=== PATIENT | female | born 1995 | race African-American/Black ===

== ENCOUNTER 2016-07-15 16:10 | Emergency (ER) | payer OTHER ==
--- NOTE | 2016-07-15 17:20 | ED Physician Documentation ---
Fall - HISTORIAN Historian: patient - HPI Stated Complaint: Back Pain Chief Complaint: Fall Additional Information: fall on carpet flat on back, no head trauma Onset: just prior to arrival Where: home Context: fell from standing r: moderate Associated Symptoms:: no loss of consciousness Location of Pain/Injury: neck, mid back, lower back Injury to Right Extremity: hand Injury to Left Extremity: none Front/Back of Body, Lg (Glades): 1 - pain/tenderness 2 - pain/tenderness Further Comments: no - ROS CONST: no problems NEURO: denies: dizziness, anxiety, depression MS/SKIN/LYMPH: neck pain, back pain. denies: weakness, numbness EYES/ENT: none CVS/RESP: none GI/: denies: problems urinating, nausea, vomiting - PAST HX Past History: none Immunizations: referred to PCP Allergies/Adverse Reactions: Allergies Allergy/AdvReac Type Severity Reaction Status Date / Time No Known Allergies Allergy Verified 03/07/16 20:13 Home Medications: Ambulatory Orders Medication Instructions Recorded Ranitidine HCl [Zantac] 75 mg PO 07/15/16 - SOCIAL HX Smoking History: cigarettes Alcohol Use: none Drug Use: marijuana - FAMILY HX Family History: no significant history - VITAL SIGNS Vital Signs: Vital Signs Temp Pulse Resp BP Pulse Ox 97.9 F 69 18 136/80 99 07/15/16 16:10 07/15/16 16:10 07/15/16 16:10 07/15/16 16:10 07/15/16 16:10 - REVIEWED ASSESSMENTS Nursing Assessment Reviewed: Yes Vitals Reviewed: Yes Progress - Results/Orders Results/Orders: c-spine, t-spine, l-spine x-rays ordered - Progress Progress: pt. stable entire time in er Critical Care Note - Critical Care Note Total Time (mins): 0 ED Results Lab/Radiology - Lab Results Lab Results: ucg neg - Radiology Radiology Impressions: c-spine, t-spine, l-spine neg - Orders Orders: ED Orders Category Date Time Status C SPINE 2 OR 3 VIEWS [RAD] Stat Exams 07/15/16 Ordered L SPINE 2 OR 3 VIEWS [RAD] Stat Exams 07/15/16 Ordered T SPINE 3 VIEWS [RAD] Stat Exams 07/15/16 Ordered URINE HCG Routine Lab 07/15/16 16:41 Ordered Fall Physical Exam - Physical Exam General Appearance: alert, mild distress Head: non-tender, no swelling, no obvious injury. No: raccoon eyes, Stacy's sign Neck: pain with neck movement (right C3) Eye: MYLENE, EOMI ENT: nml external inspection Resp/CVS: chest non-tender, no ecchymosis, breath sounds nml, no resp. distress , heart sounds nml Abdomen: soft, no organomegaly, normal bowel sounds, no distension, non-tender Neuro: oriented x3, CN's nml as tested, sensation nml, motor nml, branch lending manager nml, reflexes nml, branch lending manager symmetrical Skin: color nml, no rash Back: normal inspection, muscle spasm (right side cervical muscles, lumbar muscles), other (no step offfs c-spine, t-spine, l-spine. Multiple spinous process tendernesses, tenderness L1 right) Extremities: atraumatic, pelvis stable, no pedal edema, nml ROM Joint: joints nml, nml ROM, Nml gait/weight bearing Discharge Clincal Impression: Cervical strain Qualifiers: Encounter type: initial encounter Qualified Code(s): S16.1XXA - Strain of muscle, fascia and tendon at neck level, initial encounter Strain of thoracic spine Qualifiers: Encounter type: initial encounter Qualified Code(s): S29.019A - Strain of muscle and tendon of unspecified wall of thorax, initial encounter Lumbar strain Qualifiers: Encounter type: initial encounter Qualified Code(s): S39.012A - Strain of muscle, fascia and tendon of lower back, initial encounter Home Medications: Ambulatory Orders Ranitidine HCl [Zantac] 75 mg PO 07/15/16 Comments: Discharged in stable condition with scripts for Parafon Forte DSC 500 mg 1 p.o. qid #20 no refill, Meloxicam 7.5 mg #10 no refill Condition: Stable Disposition: 01 HOME, SELF-CARE Decision to Admit: NO Decision Time: 17:30
[2016-07-15 17:45] VITALS: BP 130/68
--- NOTE | 2016-07-16 07:54 | Diagnostic Imaging Report ---
[facility] [address] [facility].[address] [address] Report Submission Date: Jul 15, 2016 5:36:35 PM MAJOR ASSEMBLY LINEMAN Patient Study Name: JAYY ANGEL Date: Jul 15, 2016 4:55:12 PM MAJOR ASSEMBLY LINEMAN Modality Type: CR Gender: F Description: SPINE : 89 Institution: [facility] Physician: LESLI KOO Cervical spine 3 views History: Neck pain after fall Findings: Reversed cervical lordosis is present without fracture, disc space narrowing, subluxation, or prevertebral soft tissue swelling. Electronically signed on Jul 15, 2016 5:36:35 PM MAJOR ASSEMBLY LINEMAN by: Pipe MA
--- NOTE | 2016-07-16 07:55 | Diagnostic Imaging Report ---
[facility] [address] [facility] [address] [address] Report Submission Date: Jul 15, 2016 5:35:51 PM PRESENTATION MANAGER Patient Study Name: JAYY ANGEL Date: Jul 15, 2016 5:02:24 PM PRESENTATION MANAGER Modality Type: CR Gender: F Description: SPINE : 89 Institution: [facility] Physician: LESLI KOO Lumbar spine 3 views History: Low back pain after fall Findings: The lumbar spine is normal without fracture, disc space narrowing, spondylolysis, or spondylolisthesis. Electronically signed on Jul 15, 2016 5:35:51 PM PRESENTATION MANAGER by: Pipe MA
--- NOTE | 2016-07-16 07:56 | Diagnostic Imaging Report ---
[facility] [address] [facility] [address] Report Submission Date: Jul 15, 2016 5:35:14 PM REAL ESTATE SERVICES COORDINATOR Patient Study Name: JAYY ANGEL Date: Jul 15, 2016 5:04:05 PM REAL ESTATE SERVICES COORDINATOR Modality Type: CR Gender: F Description: SPINE : 89 Institution: [facility] Physician: LESLI KOO Thoracic spine 3 views History: Pain after fall Findings: The thoracic spine is unremarkable without fracture, disc space narrowing, focal bone lesion, or paraspinal swelling. Electronically signed on Jul 15, 2016 5:35:14 PM REAL ESTATE SERVICES COORDINATOR by: Pipe MA
== END 2016-07-15 17:44 | disposition home or self-care (01) ==
LOC: ED 16:10
DX: S16.1XXA Strain of muscle, fascia and tendon at neck level, initial encounter (principal); S29.019A Strain of muscle and tendon of unspecified wall of thorax, initial encounter; S39.012A Strain of muscle, fascia and tendon of lower back, initial encounter; X58.XXXA Exposure to other specified factors, initial encounter; Y93.9 Activity, unspecified; Y99.9 Unspecified external cause status
CPT/HCPCS: 72040; 72072; 72100; 81025

== ENCOUNTER 2016-10-03 22:32 | Emergency (ER) | payer OTHER | END 2016-10-03 22:39 | LOC: ED 22:32 | DX: Z32.00 Encounter for pregnancy test, result unknown (principal) | CPT/HCPCS: 99281 ==

== ENCOUNTER 2016-10-05 10:18 | Outpatient (CLI) | payer OTHER | END 2016-10-05 10:20 | LOC: LAB 10:18 | PROVIDERS: ATTEND Family Medicine | DX: Z00.00 Encounter for general adult medical examination without abnormal findings (principal); N94.6 Dysmenorrhea, unspecified; Z11.3 Encounter for screening for infections with a predominantly sexual mode of transmission | CPT/HCPCS: 36415; 84702; 87491; 87591 ==

== ENCOUNTER 2016-11-26 13:02 | Emergency (ER) | payer OTHER ==
[2016-11-26] MEDS ORDERED: ALBUTEROL SULFATE 2.5 MG/3 ML AMPUL.NEB NEB ONE ×3 (13:03→13:35)
[2016-11-26] MEDS ORDERED: SODIUM CHLORIDE 3 ML VIAL.NEB IH ONE (13:03)
[2016-11-26] MEDS ORDERED: LORazepam 1 MG TABLET PO ONE (13:05)
[2016-11-26] MEDS ORDERED: FAMOTIDINE 20 MG TABLET PO ONE (14:45)
--- NOTE | 2016-11-26 14:56 | ED Physician Documentation ---
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 denies: recent illness, weakness EYES/ENT: none GI/: none NEURO/PSYCH: headache MS/SKIN/LYMPH: none - PAST HX Lung Disease: asthma, other (gerd) Cardiac Disease: none PE Risk Factors: none, other Surgeries/Procedures: none Allergies/Adverse Reactions: Allergies Allergy/AdvReac Type Severity Reaction Status Date / Time No Known Allergies Allergy Verified 11/26/16 14:00 - SOCIAL HX Smoking History: less than 1 pack/day Alcohol Use: none Drug Use: none - FAMILY HX Family History: no significant history - VITAL SIGNS Vital Signs: Vital Signs Temp Pulse Resp BP Pulse Ox 130/68 07/15/16 17:44 - REVIEWED ASSESSMENTS Nursing Assessment Reviewed: Yes Vitals Reviewed: Yes ED Results Lab/Radiology - Orders Orders: ED Orders Category Date Time Status Place IV Lock 1T Care 11/26/16 13:05 Active Albuterol Sulfate [Ventolin] Med 11/26/16 13:03 Discontinued 2.5 mg NEB .STK-MED ONE Albuterol Sulfate [Ventolin] Med 11/26/16 13:05 Discontinued 2.5 mg NEB NOW ONE Albuterol Sulfate [Ventolin] Med 11/26/16 13:35 Once 2.5 mg NEB NOW ONE LORazepam [Ativan] Med 11/26/16 13:05 Discontinued 1 mg PO NOW ONE Sodium Chloride For Inhalation [Dey] Med 11/26/16 13:03 Discontinued 3 ml IH .STK-MED ONE Dyspnea Physical Exam - EXAM General Appearance: moderate distress EENT: eye inspection normal Neck: nml inspection Respiratory: prolonged expirations, decreased air movement, wheezes, rales, rhonchi, stridor. No: breath sounds nml CVS: reg. rate & rhythm, tachycardia Abdomen: non-tender, no distention Skin: color nml, no rash. No: cyanosis, diaphoresis, pallor Extremities: non-tender, normal range of motion Neuro/Psych: oriented x3, motor nml, sensation nml, mood/affect nml Discharge Clincal Impression: HYPERVENTILLATION DT ANXIETY, Asthma attack Referrals: Eloisa Patino MD [Primary Care Provider] - 2 Days Condition: Good Disposition: 01 HOME, SELF-CARE Decision to Admit: NO Decision Time: 14:55
[2016-11-26 15:25] VITALS: BP 106/56
== END 2016-11-26 15:21 | disposition home or self-care (01) ==
LOC: ED 13:02
DX: F41.9 Anxiety disorder, unspecified (principal); J45.909 Unspecified asthma, uncomplicated
CPT/HCPCS: 99283; S1016

== ENCOUNTER 2016-12-16 02:46 | Emergency (ER) | payer SELFPAY ==
[2016-12-16] MEDS: ORPHENADRINE CITRATE 60 MG/2ML IM ONE (03:06)
--- NOTE | 2016-12-16 03:21 | ED Physician Documentation ---
Low Back Pain - HISTORIAN Historian: patient - HPI Stated Complaint: Low Back Pain Chief Complaint: Low Back Pain/ Injury Additional Information: slipped on steps yest am worked at [employer] yest here this am for tx./ recurrent low back pain will tx for now see pcp later today. History: history of chronic pain:, back pain Onset: hours (14) Duration: continues in ED, other (toopk ibu helped some) Recent Injury: Yes Where: home Severity: mild, moderate Quality: burning, sharp, dull, similar- prior back pain Associated Symptoms: denies: fever, chills, sweating, problems urinating, difficulty walking Worsened By:: movement to RT flexion, movement to LT flexion, cough, deep breaths - ROS CONST: no problems CVS/RESP: none EYES/ENT: none MS/SKIN/LYMPH: none Neuro/Psych: none GI/: denies: abdominal pain - PAST HX Past History: back injury, back pain, other (asthma panic attacks) Surgeries/Procedures: none Allergies/Adverse Reactions: Allergies Allergy/AdvReac Type Severity Reaction Status Date / Time No Known Allergies Allergy Verified 12/16/16 02:56 Home Medications: Ambulatory Orders Medication Instructions Recorded NK [NK] 12/16/16 - SOCIAL HX Smoking History: less than 1 pack/day Drug Use: marijuana (quit few weeks ago) - FAMILY HX Family History: none - VITAL SIGNS Vital Signs: Vital Signs Temp Pulse Resp BP Pulse Ox 76 16 114/89 98 12/16/16 02:50 12/16/16 02:50 12/16/16 02:50 12/16/16 02:50 - REVIEWED ASSESSMENTS Nursing Assessment Reviewed: Yes Vitals Reviewed: Yes ED Results Lab/Radiology - Orders Orders: ED Orders Category Date Time Status Orphenadrine Citrate [Norflex] Med 12/16/16 03:06 Once 60 mg IM NOW ONE traMADol HCL [Ultram] Med 12/16/16 04:00 Ordered 100 mg PO Q4H Low Back Pain/Injury - Physical Exam General Appearance: mild distress EENT: eye inspection normal Neck: non-tender, painless ROM, trachea midline Resp/CVS: chest non-tender, breath sounds nml, heart sounds nml Abdomen: non-tender Back: CVA tenderness, muscle spasm (b ilateral) Straight Leg Raising: Positive Left, Positive Right (at 25 degrees but able to raise legs to 90 deg sitting posn) Neuro/Psych: oriented x3, motor nml, sensation nml Skin: warm/dry, normal color. No: cyanosis, diaphoresis, jaundice Extremities: non-tender, normal range of motion, no evidence of injury, no edema Discharge Clincal Impression: fall w/exab low back pain, chronic recurrent lo back pain Referrals: Eloisa Patino MD [Primary Care Provider] - 2 Days Home Medications: Ambulatory Orders NK [NK] 12/16/16 Comments: meds for tonite and norflex plus cont ibu 600 tid see pcp for narcotics if needed Condition: Good Disposition: 01 HOME, SELF-CARE Decision to Admit: NO Decision Time: 03:21
[2016-12-16] MEDS: traMADol HCL 50 MG TABLET PO SCH (03:25)
[2016-12-16] MEDS ORDERED: traMADol HCL 50 MG TABLET ONE (03:27)
[2016-12-16 03:35] VITALS: BP 108/68
== END 2016-12-16 03:30 | disposition home or self-care (01) ==
LOC: ED 02:46
DX: M54.5 Low back pain (principal); W19.XXXA Unspecified fall, initial encounter; Y93.9 Activity, unspecified; Y99.9 Unspecified external cause status
CPT/HCPCS: 96372; 99283; J2360

== ENCOUNTER 2017-04-18 13:35 | Emergency (ER) | payer SELFPAY ==
--- NOTE | 2017-04-18 14:07 | ED Physician Documentation ---
Abdominal Pain - HPI Stated Complaint: LLQ ABD pain Chief Complaint: Abdominal Pain Additonal Information: llq abd pain x 2weeks had bm liquid and formed yesterday-only one this month. eats large meals one day then minimal daily for several days-hx dec bms. sexually active but recent ua pg test =neg. nausea no emesis Onset: days ago (2 weeks not uinusual to go one month w/o bm) Duration: waxing, waning Timing: worse Context: denies: out of country travel, bad food, recent trauma Severity: moderate Quality: pain, cramping Associated Symptoms: nausea. denies: vomiting - ROS CONST: no problems GI/: none ( but very scanty urine oiutput), constipation CVS/RESP: none EYES/ENT: none MS/SKIN/LYMPH: none NEURO/PSYCH: none - SOCIAL HX Smoking History: less than 1 pack/day Alcohol Use: none Drug Use: marijuana - FAMILY HX Family History: other (mother recently dx w/ breast cancer) - PAST HX Past History: peptic ulcer, GERD, other (adhd chronic lo back pain) Surgeries/Procedures: other () Home Medications: Ambulatory Orders Medication Instructions Recorded Polyethylene Glycol 3350 [Miralax] 17 gm PO [id number] #1 powd.pack 04/18/17 Allergies/Adverse Reactions: Allergies Allergy/AdvReac Type Severity Reaction Status Date / Time No Known Allergies Allergy Verified 04/18/17 13:49 - VITAL SIGNS Vital Signs: Vital Signs Temp Pulse Resp BP Pulse Ox 97.7 F 66 15 141/89 100 04/18/17 13:50 04/18/17 13:50 04/18/17 13:50 04/18/17 13:50 04/18/17 13:50 - REVIEWED ASSESSMENTS Nursing Assessment Reviewed: Yes Vitals Reviewed: Yes ED Results Lab/Radiology - Lab Results Lab Results: Lab Results 04/18/17 04/18/17 14:15 14:15 WBC 8.80 K/ul K/ul (4.00-12.00) RBC 4.70 M/ul M/ul (3.90-5.20) Hgb 13.4 g/dL g/dL (12.0-16.0) Hct 41.3 % % (34.5-46.5) MCV 87.8 fl fl (80.0-100.0) MCH 28.4 pg pg (28.0-34.0) MCHC 32.4 g/dL g/dL (30.0-36.0) RDW 13.0 % % (11.3-14.3) Plt Count 159 K/mm3 K/mm3 (130-400) Neut % (Auto) 73.9 % % (39.0-79.0) Lymph % (Auto) 19.8 % % (16.0-50.0) [place] % (Auto) 3.5 % % (0.0-11.0) Eos % (Auto) 1.4 % % (0.0-6.8) Baso % (Auto) 0.2 (0.0-1.5) Neut # (Auto) 6.5 # k/uL # k/uL (1.4-7.7) Lymph # (Auto) 1.7 # k/uL # k/uL (0.6-4.0) [place] # (Auto) 0.3 # k/uL # k/uL (0.0-0.9) Eos # (Auto) 0.1 # k/uL # k/uL (0.0-0.6) Baso # (Auto) 0.0 # k/uL # k/uL (0.0-0.5) Reactive Lymphs % 1.2 % % (0.0-5.0) Reactive Lymphs # 0.1 # k/uL # k/uL (0.0-0.8) Sodium 138 mmol/L mmol/L (137-145) Potassium 3.4 mmol/L L mmol/L (3.5-5.1) Chloride 103 mmol/L mmol/L (98-107) Carbon Dioxide 26 mmol/L mmol/L (22-30) BUN 12 mg/dL mg/dL (7-17) Creatinine 0.80 mg/dL mg/dL (0.52-1.04) Estimated Creat Clear 103 Est GFR ( Amer) > 60 (60 - ) Est GFR (Non-Af Amer) > 60 (60 - ) Glucose 97 mg/dL mg/dL (74-106) Calcium 9.3 mg/dL mg/dL (8.4-10.2) Total Bilirubin 0.4 mg/dL mg/dL (0.2-1.3) AST 17 U/L U/L (15-46) ALT 25 U/L U/L (13-69) Alkaline Phosphatase 54 U/L U/L (38-126) Total Protein 8.0 g/dL g/dL (6.3-8.2) Albumin 4.3 g/dL g/dL (3.5-5.0) Lipase 61 U/L U/L (23-300) - Radiology Radiology Impressions: no acute abd probable xs feces cxr = ok - Orders Orders: ED Orders Category Date Time Status ABD SERIES PA CHEST [RAD] Stat Exams 04/18/17 Ordered CBC/PLATELET/DIFF Routine Lab 04/18/17 14:15 Completed CMP Routine Lab 04/18/17 14:15 Completed LIPASE Stat Lab 04/18/17 14:15 Completed URINALYSIS Routine Lab 04/18/17 Ordered URINE HCG Stat Lab 04/18/17 14:14 Ordered Abdominal Pain Physical Exam - Physical Exam General Appearance: mild distress EENT: eye inspection normal NECK: normal inspection RESPIRATORY: no resp distress, chest non-tender, breath sounds normal CVS: reg rate & rhythm, heart sounds normal ABDOMEN: soft, tenderness (christal lt side most christal llq - no guarding or rebound), abnormal bowel sounds (dec) BACK: normal inspection, no CVA tenderness SKIN: warm/dry, normal color. No: cyanosis, diaphoresis, jaundice, pallor NEURO: oriented X3, motor nml, sensation nml, mood/affect nml, cognition normal Vital Signs: Vital Signs Temp Pulse Resp BP Pulse Ox 97.7 F 66 15 141/89 100 04/18/17 13:50 04/18/17 13:50 04/18/17 13:50 04/18/17 13:50 04/18/17 13:50 Discharge Clincal Impression: un dx abd pain Prescriptions: Polyethylene Glycol 3350 [Miralax] 17 gm PO [id number] #1 powd.pack Referrals: Eloisa Patino MD [STAFF PHYSICIAN] - 2 Days Comments: take miralax as directed--if not sig better or christal gets sig worse rted next `1- 2 days or stat prn Condition: Good Disposition: 01 HOME, SELF-CARE Decision to Admit: NO Decision Time: 15:25
[2017-04-18 14:23] LABS: BASOPHILS % 0.2 (0.0-1.5); EOSINOPHILS % 1.4 % (0.0-6.8); MEAN CORPUSCULAR HEMOGLOBIN 28.4 pg (28.0-34.0); MEAN CORPUSCULAR VOLUME 87.8 fl (80.0-100.0); MONOCYTES % 3.5 % (0.0-11.0); NEUTROPHILS # 6.5 # k/uL (1.4-7.7)
[2017-04-18 14:30] VITALS: BP 141/89
[2017-04-18 14:37] LABS: eGFR (African) > 60; eGFR (Non-African) > 60
--- NOTE | 2017-04-18 16:03 | Diagnostic Imaging Report ---
SAMIR HDZ [facility] [address] [facility] [address] [address] Report Submission Date: Apr 18, 2017 2:44:45 PM CDT Patient Study Name: JAYY JERNIGAN Date: Apr 18, 2017 2:19:43 PM CDT Modality Type: CR Gender: F Description: CHEST,ABDOMEN : 89 Institution: [facility] Physician: SAMIR HDZ Examination: Obstruction series History: Abdominal discomfort Findings: 4 views obtained of the chest and abdomen. Single view the chest without focal infiltrative process. Normal cardiac and mediastinal left. No abnormal dilation of the large or small bowel. Air and stool throughout the large bowel. No suspicious calcification projecting over the renal fossa or the lower pelvic region. Osseous structures are appropriate for age. Impression: No acute pulmonary process. No obstruction. No suspicious calcifications by plain film sensitivity. Electronically signed on Apr 18, 2017 2:44:45 PM CDT by: Lucio MA
[2017-04-19 05:29] LABS: APPEARANCE,URINE CLEAR (CLEAR); COLOR,URINE AMBER (YELLOW); OCCULT BLOOD,URINE 2+ (NEGATIVE); URINE HCG NEGATIVE (NEGATIVE)
== END 2017-04-18 15:25 | disposition home or self-care (01) ==
LOC: ED 13:35
DX: R10.9 Unspecified abdominal pain (principal)
CPT/HCPCS: 74022; 80053; 81002; 81025; 83690; 85025; 99283

== ENCOUNTER 2017-07-28 09:40 | Emergency (ER) | payer SELFPAY ==
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
[2017-07-28 10:38] VITALS: BP 114/77
[2017-07-28] MEDS ORDERED: KETOROLAC TROMETHAMINE 30 MG/1ML VIAL IM ONE (10:49)
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
== END 2017-07-28 11:11 | disposition home or self-care (01) ==
LOC: ED 09:40
DX: S63.501A Unspecified sprain of right wrist, initial encounter (principal); Y08.89XA Assault by other specified means, initial encounter; Y93.9 Activity, unspecified; Y92.9 Unspecified place or not applicable
CPT/HCPCS: 73110; 73130; 81025; L3908; 96372; 99283

== ENCOUNTER 2017-10-21 10:23 | Emergency (ER) | payer OTHER ==
--- NOTE | 2017-10-21 10:31 | ED Physician Documentation ---
General Adult - HISTORIAN Historian: patient - HPI Stated Complaint: n/v/diarrhea Chief Complaint: General Adult Onset: days ago (1) Timing: still present Severity: moderate Further Comments: yes (Pt is a 22 yo female with n/v/diarrhea since early this am. Pt has not had fever. No blood with bm. No recollection of eating food that tasted bad or of eating lettuce during CDC warning about lettuce.) - ROS CONST: other (malaise) EYES/ENT: none CVS/RESP: none GI/: abdominal pain, vomiting, nausea, diarrhea MS/SKIN/LYMPH: none - PAST HX Past History: other (anxiety/depression, ulcer) Other History: none Allergies/Adverse Reactions: Allergies Allergy/AdvReac Type Severity Reaction Status Date / Time No Known Allergies Allergy Verified 10/21/17 11:16 Home Medications: Ambulatory Orders Medication Instructions Recorded Ciprofloxacin HCl [Cipro] 500 mg PO BID #14 tablet 10/21/17 Metronidazole 500 mg PO Q8H #21 tablet 10/21/17 Ondansetron HCl Rapdis [Zofran Odt] 4 mg PO Q8 PRN #8 tab 10/21/17 Sertraline HCl [Zoloft] 25 mg PO DAILY 10/21/17 Trazodone HCl 50 mg PO HS 10/21/17 - SOCIAL HX Smoking History: cigarettes Alcohol Use: occasionally Drug Use: marijuana - FAMILY HX Family History: No - VITAL SIGNS Vital Signs: Vital Signs Temp Pulse Resp BP Pulse Ox 114/77 07/28/17 09:40 - REVIEWED ASSESSMENTS Nursing Assessment Reviewed: Yes Vitals Reviewed: Yes Progress - Progress Progress: CT Abdomen/pelvis with IV protocol. Findings: Liver, spleen, adrenals, pancreas, kidneys and gallbladder are without gross irregularity. No abnormal enhancement. No gallstone. No suspicious renal calcifications. Ureters not well visualized. Abdominal aorta without aneurysm or peripheral atherosclerotic disease. Cardiac silhouette not enlarged. No pericardial effusion. Numerous prominent loops of small bowel associated with air-fluid levels. Stool and fluid within the large bowel. Free fluid within the lower pelvis posterior to the uterus. No peripheral enhancement. Osseous structures within normal limits. Lung bases without infiltrate. No effusion. Impression: Prominent small bowel with air-fluid levels - diffuse gastroenteritis versus early ileus. No upper abdominal organ acute inflammatory process. No gallstone. No suspicious renal calcification or overt ureteric abnormality. 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 No lung base consolidation or effusion. NS 1 L IVF in ER Zofran 4 mg IV D/c instructions: Rx Ciprofloxacin 500 mg. Take one every 12 hrs for 7 days. Rx Metronidazole 500 mg. Take one every 8 hrs for 7 days. Do not drink alcohol while taking this medications. Rx Zofran ODT 4 mg. Take one every 8 hrs as needed for nausea/vomiting. Return to ER is symptoms become worse or you have new concerns. General Adult Physical Exam - PHYSICAL EXAM GENERAL APPEARANCE: moderate distress EENT: pharynx normal NECK: normal inspection, supple RESPIRATORY: no resp distress, chest non-tender, breath sounds normal CVS: reg rate & rhythm, heart sounds normal ABDOMEN: soft, no organomegaly, normal bowel sounds, tenderness (lower abdomen and epigastrium) BACK: normal inspection, no CVA tenderness SKIN: warm/dry, normal color EXTREMITIES: non-tender, normal range of motion, no evidence of injury, no edema NEURO: oriented X3, motor nml, sensation nml Discharge Clincal Impression: gastroenteritis Prescriptions: Ciprofloxacin HCl [Cipro] 500 mg PO BID #14 tablet Metronidazole 500 mg PO Q8H #21 tablet Ondansetron HCl Rapdis [Zofran Odt] 4 mg PO Q8 PRN #8 tab PRN Reason: Nausea / Vomiting Referrals: Eloisa Patino MD [Primary Care Provider] - Condition: Stable Disposition: 01 HOME, SELF-CARE Decision to Admit: NO Decision Time: 12:48
[2017-10-21] MEDS ORDERED: 0.9 % SODIUM CHLORIDE 1,000 ML IV ONE (10:34)
[2017-10-21] MEDS ORDERED: ONDANSETRON HCL/PF 4 MG/ 2ML VIAL IVP ONE (10:36)
[2017-10-21 10:52] LABS: BASOPHILS % 0.1 (0.0-1.5); EOSINOPHILS % 1.9 % (0.0-6.8); MEAN CORPUSCULAR HEMOGLOBIN 28.3 pg (28.0-34.0); MEAN CORPUSCULAR VOLUME 88.3 fl (80.0-100.0); MONOCYTES % 1.8 % (0.0-11.0); NEUTROPHILS # 14.1 # k/uL (1.4-7.7)
[2017-10-21 11:07] LABS: eGFR (African) > 60; eGFR (Non-African) > 60
--- NOTE | 2017-10-21 19:49 | Diagnostic Imaging Report ---
[facility] [id number] [facility].[address] [address] Report Submission Date: October 21, 2017 12:25:38 PM CDT Patient Study Name: JAYY JERNIGAN Date: October 21, 2017 11:51:31 AM CDT Modality Type: CT\SR Gender: F Description: CT ABD PELVIS W/ CON : 96 Institution: [facility] Physician: NII DAVENPORT Examination: CT Abdomen/pelvis History: CT A/P W/ CONTRAST, LOWER ABDOMINAL/ PELVIC PAIN TODAY, ELEVATED WBC ( Hx) Comparison exams: None available Technique: CT Abdomen/pelvis with IV protocol. Findings: Liver, spleen, adrenals, pancreas, kidneys and gallbladder are without gross irregularity. No abnormal enhancement. No gallstone. No suspicious renal calcifications. Ureters not well visualized. Abdominal aorta without aneurysm or peripheral atherosclerotic disease. Cardiac silhouette not enlarged. No pericardial effusion. Numerous prominent loops of small bowel associated with air-fluid levels. Stool and fluid within the large bowel. Free fluid within the lower pelvis posterior to the uterus. No peripheral enhancement. Osseous structures within normal limits. Lung bases without infiltrate. No effusion. Impression: Prominent small bowel with air-fluid levels - diffuse gastroenteritis versus early ileus. No upper abdominal organ acute inflammatory process. No gallstone. No suspicious renal calcification or overt ureteric abnormality. 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 No lung base consolidation or effusion. Electronically signed on October 21, 2017 12:25:38 PM CDT by: Lucio MA
[2017-10-22 06:54] LABS: APPEARANCE,URINE CLOUDY (CLEAR); COLOR,URINE AMBER (YELLOW); OCCULT BLOOD,URINE NEGATIVE (NEGATIVE); UROBILINOGEN URINE 0.2 Eu (0.2-1.0)
== END 2017-10-21 12:45 | disposition home or self-care (01) ==
LOC: ED 10:23
DX: K52.9 Noninfective gastroenteritis and colitis, unspecified (principal)
CPT/HCPCS: 74177; 80053; 81002; 81025; 83690; 85025; J2405; J7030; 96365; 96375; 99283; Q9967; S1016

== ENCOUNTER 2018-04-14 14:01 | Emergency (ER) | payer OTHER ==
[2018-04-14] MEDS: IPRATROPIUM/ALBUTEROL SULFATE 3 ML AMPUL.NEB NEB ONE (14:26)
--- NOTE | 2018-04-14 14:38 | ED Physician Documentation ---
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 pt presents to the ED c/o productive cough, nasal drainage green/yellow x 10 days. pt reports chills x 2 days. pt has hx of asthma pt reports she hasnt had her albuterol inh in several months. pt denies current chest pain, dyspnea, syncope/near syncope, headache, dizziness, visual disturbances, n/v/d, fever, rash, sick contacts, dysuria, trauma. melena or hematochezia, anxiety or depression. ROS Negative unless otherwise specified. - ROS CONST/EYES: denies: weakness MS/SKIN: denies: muscle aches - PAST HX Lung Disease: asthma Other History: other (depression/anxiety) Allergies/Adverse Reactions: Allergies Allergy/AdvReac Type Severity Reaction Status Date / Time No Known Drug Allergies Allergy Unverified 11/01/12 14:45 Home Medications: Ambulatory Orders Medication Instructions Recorded Ciprofloxacin HCl [Cipro] 500 mg PO BID #14 tablet 10/21/17 Metronidazole 500 mg PO Q8H #21 tablet 10/21/17 Ondansetron HCl Rapdis [Zofran Odt] 4 mg PO Q8 PRN #8 tab 10/21/17 Sertraline HCl [Zoloft] 25 mg PO DAILY 10/21/17 Trazodone HCl 50 mg PO HS 10/21/17 - SOCIAL HX Smoking History: non-smoker Alcohol Use: none Drug Use: none - FAMILY HX Family History: no significant history - VITAL SIGNS Vital Signs: Vital Signs Temp Pulse Resp BP Pulse Ox 98.2 F 76 16 116/76 98 04/14/18 15:05 04/14/18 15:05 04/14/18 15:05 04/14/18 15:05 04/14/18 15:05 - REVIEWED ASSESSMENTS Nursing Assessment Reviewed: Yes Vitals Reviewed: Yes ED Results Lab/Radiology - Lab Results Lab Results: Lab Results 04/14/18 14:35 Influenza Type A Ag Negative (NEGATIVE) Influenza Type B Ag Negative (NEGATIVE) - Orders Orders: ED Orders Category Date Time Status INFLUENZA A&B Stat Lab 04/14/18 14:35 Completed Ipratropium/Albuterol Sulfate [Duoneb] Med 04/14/18 14:26 Discontinued 3 ml NEB NOW ONE Upper Respiratory Symptoms - EXAM General Appearance: no acute distress, alert EENT: eyes nml inspection, pain over sinuses, maxillary, purulent nasal drainage, pharyngeal erythema. No: TM erythema, TM dullness (R) Neck: lymphadenopathy Respiratory: no resp. distress, wheezes (mild exp wheezes. improved after duoneb. ) Abdomen: non-tender, no organomegaly, nml bowel sounds, no distention CVS: reg rate & rhythm, heart sounds normal, equal pulses, no murmur, no gallop Skin: color nml, no rash, warm,dry Extremities: non-tender, normal range of motion, no evidence of injury, no edema Neuro/Psych: oriented x3 Discharge Clincal Impression: Asthma Qualifiers: Asthma severity: mild Asthma persistence: intermittent Asthma complication type: uncomplicated Qualified Code(s): J45.20 - Mild intermittent asthma, uncomplicated Upper respiratory infection Qualifiers: URI type: unspecified URI Qualified Code(s): J06.9 - Acute upper respiratory i nfection, unspecified Referrals: Eloisa Patino MD [STAFF PHYSICIAN] - 2 Days Additional Instructions: ProAir albuterol inhaler 1-2 puffs every 4 hours as needed for shortness of breath. Augmentin 875 mg twice a day for 7 days. Over the counter decongestant like sudafed as directed on label. Monitor and seek medical care immediately for any worsening symptoms: severe pain, chest pain, shortness of breath, or any concern follow up in primary care clinic next week for recheck or before if not improving as expected -UNDERSTAND THAT THIS IS AN EMERGENCY EVALUATION FOR YOUR COMPLAINT TODAY AND BY NATURE IS LIMITED AND NOT A SUBSTITUTE FOR ONGOING MEDICAL CARE. I HAVE EXPLAINED THE TEST RESULTS AND TREATMENT PLAN- THERE MAY BE A NEED FOR ADDITIONAL TESTING TO FULLY DETERMINE THE EXTENT OF YOUR ILLNESS/INJURY/OR CONCERN SO YOU SHOULD CONTACT AND OR ESTABLISH WITH A PRIMARY CARE PROVIDER (OR REFERRAL DOCTOR IF APPLICABLE) FOR AN APPOINTMENT SOON POSSIBLE Condition: Good Disposition: 01 HOME, SELF-CARE Decision to Admit: NO Date of Decison to Admit: 04/14/18 Decision Time: 15:00
[2018-04-14 15:11] VITALS: BP 116/76
== END 2018-04-14 15:00 | disposition home or self-care (01) ==
LOC: ED 14:01
DX: J45.20 Mild intermittent asthma, uncomplicated (principal); J06.9 Acute upper respiratory infection, unspecified
CPT/HCPCS: 87400; 94640; 99283

== ENCOUNTER 2019-02-11 13:31 | Emergency (ER) | payer OTHER ==
--- NOTE | 2019-02-11 13:35 | ED Physician Documentation ---
General Adult - HISTORIAN Historian: patient - HPI Stated Complaint: fever x 2 days Chief Complaint: Fever Onset: days ago (2) Timing: still present Severity: moderate Further Comments: yes (she states she started to have allergy drainage about one week ago and then two days ago started to have a fever she states at home was 103 and prior to coming in she was at 102. She did not take any OTC meds prior to coming to the ER. She denies any nausea. No rash. No sick contacts. No burning with urination. Body aches is her complaint) - ROS CONST: fever EYES/ENT: none CVS/RESP: none GI/: none MS/SKIN/LYMPH: none NEURO/PSYCH: denies: headache - PAST HX Past History: none Immunizations: UTD Allergies/Adverse Reactions: Allergies Allergy/AdvReac Type Severity Reaction Status Date / Time No Known Drug Allergies Allergy Verified 02/11/19 13:48 Home Medications: Ambulatory Orders Medication Instructions Recorded NK 02/11/19 - SOCIAL HX Smoking History: non-smoker Alcohol Use: none Drug Use: none - FAMILY HX Family History: No - VITAL SIGNS Vital Signs: Vital Signs Temp Pulse Resp BP Pulse Ox 116/76 04/14/18 15:05 - REVIEWED ASSESSMENTS Nursing Assessment Reviewed: Yes Vitals Reviewed: Yes General Adult Physical Exam - PHYSICAL EXAM GENERAL APPEARANCE: no distress EENT: eye inspection normal, ENT inspection normal, pharynx normal, no signs of dehydration NECK: normal inspection RESPIRATORY: no resp distress, chest non-tender, breath sounds normal CVS: reg rate & rhythm, heart sounds normal, equal pulses ABDOMEN: soft, normal bowel sounds, no distension, non-tender BACK: normal inspection, no CVA tenderness SKIN: warm/dry EXTREMITIES: non-tender NEURO: oriented X3 Discharge Clincal Impression: Fever Qualifiers: Fever type: unspecified Qualified Code(s): R50.9 - Fever, unspecified Referrals: Primary Doctor,No [Primary Care Provider] - 2 Days Comments: 1. Continue OTC meds as directed as needed for symptom management 2. Increase fluids 3. Rest 4. Follow up with PCP in 2-4 day continued concerns 5. Return to ER for increasing concerns Condition: Stable Disposition: 01 HOME, SELF-CARE Decision to Admit: NO Date of Decison to Admit: 02/11/19 Decision Time: 14:12
[2019-02-11 13:48] VITALS: BP 104/72
[2019-02-11] MEDS ORDERED: KETOROLAC TROMETHAMINE 60 MG/2 ML VIAL IM ONE (14:05)
== END 2019-02-11 14:18 | disposition home or self-care (01) ==
LOC: ED 13:31
DX: R50.9 Fever, unspecified (principal)
CPT/HCPCS: 96372; 99282; 99283; J1885

== ENCOUNTER 2019-03-05 14:19 | Emergency (ER) | payer BC, OTHER ==
--- NOTE | 2019-03-05 14:27 | ED Physician Documentation ---
General Adult - HISTORIAN Historian: patient - HPI Stated Complaint: eye pain after leaving contact in several days Chief Complaint: Eye Problems Onset: days ago (1) Timing: still present Severity: moderate Further Comments: yes (She states she left her contact "in too long" and "could not get it out and my aunt had to help me get the contact out and I have had pain since this issue" . She states she had total blurry vision and now she can see some throug this eye. States she did call her Eye Dr and they told her to come to ER for possible infection. She did try OTC eye drops with increased stinging . No other complaints. No fever. No drainage) - ROS CONST: no problems EYES/ENT: problems with vision - PAST HX Past History: none Allergies/Adverse Reactions: Allergies Allergy/AdvReac Type Severity Reaction Status Date / Time No Known Drug Allergies Allergy Verified 03/05/19 14:33 Home Medications: Ambulatory Orders Medication Instructions Recorded NK 02/11/19 - SOCIAL HX Smoking History: cigarettes Alcohol Use: none Drug Use: none - FAMILY HX Family History: No - VITAL SIGNS Vital Signs: Vital Signs Temp Pulse Resp BP Pulse Ox 104/72 02/11/19 14:17 - REVIEWED ASSESSMENTS Nursing Assessment Reviewed: Yes Vitals Reviewed: Yes General Adult Physical Exam - PHYSICAL EXAM GENERAL APPEARANCE: no distress EENT: MYLENE, other (conjuctiva red. NO drainage. Normal eye movement. No swelling ) RESPIRATORY: no resp distress, chest non-tender, breath sounds normal CVS: reg rate & rhythm ABDOMEN: soft, normal bowel sounds, no distension BACK: normal inspection, no CVA tenderness SKIN: warm/dry EXTREMITIES: non-tender, normal range of motion, no evidence of injury NEURO: oriented X3 Discharge Clincal Impression: Acute right eye pain Referrals: Primary Doctor,No [Primary Care Provider] - 2 Days Comments: 1. Keep glasses on - do not use contacts notify Eye dr and see when they want you to use those again 2. Cool compress 3. Rest today 4. See Eye Dr tomorrow 5. Return to ER for any increasing concerns Condition: Stable Disposition: 01 HOME, SELF-CARE Decision to Admit: NO Date of Decison to Admit: 03/05/19 Decision Time: 14:45
[2019-03-05 14:37] VITALS: BP 107/63
== END 2019-03-05 14:50 | disposition home or self-care (01) ==
LOC: ED 14:19
DX: H57.11 Ocular pain, right eye (principal)
CPT/HCPCS: 99281

== ENCOUNTER 2019-06-21 20:22 | Emergency (ER) | payer OTHER ==
--- NOTE | 2019-06-21 20:25 | ED Physician Documentation ---
General Adult - HISTORIAN Historian: patient - HPI Stated Complaint: vomiting, body aches Chief Complaint: General Adult Onset: days ago Timing: still present Severity: moderate Further Comments: yes (Pt is a 23 yo female with generalized body aches and vomiting x 1 week. Pt has had urinary frequency and urgency and dysuria with back pain. Pt has had sore throat.) - ROS CONST: chills EYES/ENT: sore throat CVS/RESP: none GI/: problems urinating, vomiting, nausea MS/SKIN/LYMPH: none - PAST HX Past History: asthma Allergies/Adverse Reactions: Allergies Allergy/AdvReac Type Severity Reaction Status Date / Time No Known Drug Allergies Allergy Verified 06/21/19 20:37 Home Medications: Ambulatory Orders Medication Instructions Recorded NK 02/11/19 - SOCIAL HX Smoking History: cigarettes - FAMILY HX Family History: No - VITAL SIGNS Vital Signs: Vital Signs Temp Pulse Resp BP Pulse Ox 107/63 03/05/19 14:50 - REVIEWED ASSESSMENTS Nursing Assessment Reviewed: Yes Vitals Reviewed: Yes Progress - Progress Progress: u/a 4+ ketone, 3+ protein NS 1 L IVF CXR: There are a few subtle patchy bilateral airspace opacities. There is no pleural effusion or pneumothorax. The cardiomediastinal silhouette is normal. The visible bony thorax is intact. IMPRESSION: A few subtle patchy bilateral airspace opacities. Duoneb HFN Azithromycin 500 mg po x 1 Early pneumonia d/c instructions Rx Azithromycin 250 mg. Take one by mouth once daily for 5 days. Rx Albuterol (90 mcg/spray) MDI. Take 2 puffs every 4 to 6 hours as needed for wheezing. (2 refills) General Adult Physical Exam - PHYSICAL EXAM GENERAL APPEARANCE: moderate distress EENT: pharynx normal NECK: normal inspection, supple RESPIRATORY: no resp distress, chest non-tender, wheezes CVS: reg rate & rhythm, heart sounds normal ABDOMEN: soft, no organomegaly, normal bowel sounds BACK: normal inspection, CVA tenderness (R) (mild) SKIN: warm/dry, normal color EXTREMITIES: non-tender, normal range of motion, no evidence of injury NEURO: oriented X3, motor nml, sensation nml Discharge Clincal Impression: early pneumonia, hx asthma Referrals: Primary Doctor,No [Primary Care Provider] - Condition: Stable Disposition: HOME, SELF-CARE Decision to Admit: NO Decision Time: :52
[2019-06-21] MEDS ORDERED: 0.9 % SODIUM CHLORIDE 1,000 ML IV ONE (20:44)
[2019-06-21] MEDS ORDERED: ONDANSETRON HCL/PF 4 MG/ 2ML VIAL IVP ONE (20:45)
[2019-06-21] MEDS ORDERED: KETOROLAC TROMETHAMINE 30 MG/1ML VIAL ONE (21:59)
[2019-06-21] MEDS ORDERED: KETOROLAC TROMETHAMINE 15 MG/ML VIAL IV ONE (22:01)
--- NOTE | 2019-06-21 22:20 | Diagnostic Imaging Report ---
PATIENT MR#: [id number] PATIENT PATIENT NAME: JAYY JERNIGAN DATE OF : 1995 REFERRING PHYSICIAN: Chilo Baer EXAM DATE: 06/21/2019 ACCESSION NUMBER: [id number] EXAM DESCRIPTION: CHEST 2VIEW EXAMINATION: CHEST 2VIEW HISTORY: wheezing (Hx) / Note time : 06/21/2019 10:1 3:33 PM User : Kristen Patel wheezing (DICOM Hx) (DICOM Hx) COMPARISON: 04/18/2017 FINDINGS: There are a few subtle patchy bilateral airspace opacities. There is no pleural effusion or pneumotho rax. The cardiomediastinal silhouette is normal. The visible bony thorax is intact. IMPRESSION: A few subtle patchy bilateral airspace opacities. Read by: Sonu Jose Transcribed by: Transcribed Date: Electronically signed by: Sonu Jose Date signed: 06/21/2019 10:19:24 PM
[2019-06-21] MEDS ORDERED: IPRATROPIUM/ALBUTEROL SULFATE 3 ML AMPUL.NEB NEB ONE (22:23)
[2019-06-21] MEDS ORDERED: AZITHROMYCIN 250 MG TABLET PO ONE (22:23)
[2019-06-21 23:04] VITALS: BP 112/67
[2019-06-22 06:23] LABS: OCCULT BLOOD,URINE TRACE (NEGATIVE); PH URINE 6.5 (5.0 - 8.0)
[2019-06-22 07:43] LABS: NEUTROPHILS # 3.9 # k/uL (1.4-7.7)
[2019-06-22 07:44] LABS: eGFR (Non-African) > 60
[2019-06-22 08:39] LABS: OVALOCYTES 1+ (NEGATIVE); SEGMENTED NEUTROPHILS % 63 % (39-79)
== END 2019-06-21 22:55 | disposition home or self-care (01) ==
LOC: ED 20:22
DX: J18.9 Pneumonia, unspecified organism (principal)
CPT/HCPCS: 71046; 80053; 81002; 81025; 83690; 85025; 87086; 94640; 96361; 96374; 96375; 99284; J2405; J7030; S1016